=== PATIENT | male | born 1965 | race Caucasian/White ===

== ENCOUNTER 2023-06-02 08:14 | Day surgery (SDC) | payer BC ==
[2023-05-30 10:28] VITALS: BMI 24.4
[2023-06-02 08:26] VITALS: RESP 17
[2023-06-02 12:49] VITALS: PULSE 54; TEMP 98
[2023-06-02 13:36] VITALS: BP 99/68
== END 2023-06-02 09:30 | disposition home or self-care (01) ==
LOC: FASU-ENDO 08:14
PROVIDERS: ATTEND Internal Medicine Gastroenterology
PROC: 0DB68ZX Excision of Stomach, Via Natural or Artificial Opening Endoscopic, Diagnostic (ICD-10-PCS; 2023-06-02)
PROC: 0DB98ZX Excision of Duodenum, Via Natural or Artificial Opening Endoscopic, Diagnostic (ICD-10-PCS; principal; 2023-06-02 08:50)
DX: K29.70 Gastritis, unspecified, without bleeding (principal); R12 Heartburn
CPT/HCPCS: 88305-TC; 88342-TC